=== PATIENT | male | born 1990 | race Caucasian/White ===

== ENCOUNTER 2025-06-29 14:26 | Outpatient (CLI) | payer BC, SELFPAY ==
--- NOTE | ~2025-06-29 | MR_ITS ---
EXAMINATION: MR knee LT wo con DATE: 06/29/2025 14:55 INDICATION: Left knee pain TECHNIQUE: Magnetic resonance imaging (MRI) of the left knee was performed without intravenous contrast. Sequences included coronal PD-weighted FSE, coronal PD-weighted FS FSE, sagittal T2-weighted FSE, sagittal PD-weighted FS FSE and axial PD weighted fat saturated FSE. COMPARISON: None. FINDINGS: Osseous/other: There is prominent magnetic field artifact which obscures the surrounding bone and soft tissues centered along the medial aspect of the proximal tibia and suggesting medial plate-screw fixation for possible prior fracture. No fracture or pathologic marrow replacing process. Medial compartment: Medial meniscus and articular cartilage where not obscured appear normal. Evaluation is however significantly limited on the tibial plateau, meniscus and anterior weightbearing medial femoral condyle by the magnetic field artifact. Lateral compartment: There is lateral extrusion of the body of the lateral meniscus. No definitive meniscal tear identified although significant portions of the meniscus particularly at the posterior horn is obscured by the metallic magnetic field artifact. Articular cartilage along the weightbearing lateral femoral condyle and anterior half of the lateral tibial plateau appears normal. Cartilage along the posterior aspect lateral tibial plateau is partially obscured. There appears be an irregular cortical contour to the articular cortex at the posterior aspect of the lateral tibial plateau. Patellofemoral compartment: Articular cartilage is normal. Ligaments and tendons: Anterior and posterior cruciate ligaments are suboptimally visualized but appear normal.. The proximal medial collateral ligament appears normal. The mid to distal ligament is obscured by metallic field artifact. The fibular collateral ligament complex is normal.. Patellar tendon is normal. Mild distal quadriceps tendinopathy. The visualized medial and lateral hamstring tendons as well as the iliotibial band are normal. Fluid: Physiologic amount of fluid in the joint space. No loose osteochondral bodies identified. Moderate-sized multiloculated Nava's cyst which extends 8 cm craniocaudally at the posterior medial aspect of the knee and which measures up to 2.5 x 0.7 cm maximal transaxial dimensions. There is also a moderate amount of fluid in the prepatellar and pretibial bursa which extends 6.8 cm craniocaudally, 4.8 cm medial collateral and up to 5 mm in maximal thickness. IMPRESSION: 1. Significant limitation to assessment of the menisci and cartilage in the medial and lateral compartments resulting from prominent metallic magnetic field artifact such with instrumentation along the medial side of the tibia suggesting prior plain screw fixation for possible healed proximal tibial fracture. Correlate with clinical history and with plain radiographs. 2. Mild lateral extrusion of the lateral meniscal body. No definitive meniscal tear is identified. 3. No evident chondromalacia. Head does however appear to be mild irregularity to the articular cortex at the posterior aspect lateral tibial plateau which could be due to overlying chondromalacia or sequela of old fracture. 4. Moderate prepatellar and pretibial bursitis. 5 moderate-sized multilobulated Nava's cyst at the posterior medial aspect of the knee. Reviewed, dictated and finalized at location A. IMPRESSION: 1. Significant limitation to assessment of the menisci and cartilage in the med ial and lateral compartments resulting from prominent metallic magnetic field a rtifact such with instrumentation along the medial side of the tibia suggesting prior plain screw fixation for possible healed proximal tibial fracture. Corre late with clinical history and with plain radiographs. 2. Mild lateral extrusion of the lateral meniscal body. No definitive meniscal tear is identified. 3. No evident chondromalacia. Head does however appear to be mild irregularity to the articular cortex at the posterior aspect lateral tibial plateau which co uld be due to overlying chondromalacia or sequela of old fracture. 4. Moderate prepatellar and pretibial bursitis. 5 moderate-sized multilobulated Nava's cyst at the posterior medial aspect of the knee.
== END 2025-06-29 14:27 | disposition home or self-care (01) ==
PROVIDERS: PCP Family Medicine; Visit Provider Family Medicine
DX: Z18.11 Retained magnetic metal fragments (principal); M23.332 Other meniscus derangements, other medial meniscus, left knee; M70.42 Prepatellar bursitis, left knee; M76.42 Tibial collateral bursitis [Pellegrini-Stieda], left leg
CPT/HCPCS: 73721